=== PATIENT | male | born 1995 | race Caucasian/White ===

== ENCOUNTER 2019-02-03 18:57 | Emergency (ER) | payer OTHER ==
[~2019-02-03] VITALS: Ht 162.6 cm; Wt 81.7 kg
[~2019-02-03 18:57] MED LIST: AMOCLA500 PO; AMOX500 PO; ARIP10 PO; CEPH500 PO; CITA20 PO; CRUTCH USE; CRUTCH4 USE; CYCL10 PO; HYDACE5 PO; IBUP400 PO; IBUP600 PO; IBUP800 PO; NAPR220 PO; NAPR500 PO; Norco 5-325 Ta1 EACH PO; OXYACE5T PO; Permethrin60 GM TP; RXCYCL10 PO; RXTRAM50 PO; TRAM50 PO; [UNRECOGNIZED DRUG - OTHER] EXT
[2019-02-03 20:42] LABS: BASOPHILS ABSOLUTE AUTO 0.05 K/mm3 (0.00-0.23); BASOPHILS PERCENT AUTO 1 % (0-2); EOSINOPHILS ABSOLUTE AUTO 0.12 K/mm3 (0.00-0.68); EOSINOPHILS PERCENT AUTO 1 % (0-6); Hematocrit 45.6 % (37.0-53.0); Hemoglobin 15.4 g/dL (13.5-17.5); IMMATURE GRAN ABSOLUTE AUTO 0.02 K/mm3 (0.00-0.10); IMMATURE GRAN PERCENT AUTO 0 % (0-1); LYMPHOCYTES ABSOLUTE AUTO 2.11 K/mm3 (0.84-5.20); LYMPHOCYTES PERCENT AUTO 22 % (21-46); MONOCYTES ABSOLUTE AUTO 0.89 K/mm3 (0.16-1.47); MONOCYTES PERCENT AUTO 10 % (4-13); Mean Corpuscular HGB 30.1 pg (26.0-34.0); Mean Corpuscular HGB Conc 33.8 g/dL (31.5-36.5); Mean Corpuscular Volume 89 fL (80-100); Mean Platelet Volume 9.3 fL (9.1-12.4); NEUTROPHILS ABSOLUTE AUTO 6.22 K/mm3 (1.96-9.15); NEUTROPHILS PERCENT AUTO 66 % (41-73); Platelet Count 298 K/mm3 (150-400); RDW Coefficient Variation 12.2 % (11.7-14.2); RDW Standard Deviation 40.6 fL (35.1-46.3); Red Blood Cell Count 5.11 M/mm3 (4.30-5.90); White Blood Cell Count 9.41 K/mm3 (4.00-11.30)
[2019-02-03 20:43] LABS: Source, Urine Voided
[2019-02-03 20:51] LABS: Bilirubin, Urine Neg (Neg); Blood, Urine Neg (Neg); Glucose Qualitative, Urine Neg (Neg); Ketones, Urine 4+ (Neg); Leukocyte Esterase, Urine 1+ (Neg); Nitrite, Urine Neg (Neg); Protein, Urine Neg (Neg); Specific Gravity, Urine 1.025 (1.003-1.022); Urobilinogen, Urine NORM (Normal)
[2019-02-03 20:52] LABS: Appearance, Urine Clear (Clear); Color, Urine Yellow (P-Yellow)
[2019-02-03 20:57] LABS: Bacteria Mod /hpf; Red Blood Cells, Urine 0-2 /hpf (0-2); Squamous Epithelial Cells Few /hpf (Few)
[2019-02-03 21:02] LABS: U Amphetamine Screen DETECTED; U Barbituate Screen Not Detected; U Benzodiazapine Screen Not Detected; U Buprenorphine Screen Not Detected; U Cannabinoids Screen Not Detected; U Cocaine Screen Not Detected; U Methadone Screen Not Detected; U Methamphetamine Screen DETECTED; U Opiates Screen Not Detected; U Oxycodone Screen Not Detected; U Phencyclidine Screen Not Detected; U Propoxyphene Screen Not Detected
[2019-02-03 21:04] LABS: Alanine Aminotransfer (ALT/SGP 69 U/L (12-78); Albumin, Blood 4.3 g/dL (3.4-5.0); Albumin/Globulin Ratio 1.3 (0.8-1.8); Alk Phos 113 U/L (50-136); Anion Gap 9 mmol/L (6-16); Aspartate Aminotrans (AST/SGOT 115 U/L (12-37); Bilirubin, Total 1.7 mg/dL (0.1-1.0); Blood Urea Nitrogen 22 mg/dL (8-24); Bun/Creatinine Ratio 21.4 (12.0-20.0); CO2, Blood 24 mmol/L (21-32); Calcium, Blood 8.8 mg/dL (8.5-10.1); Chloride, Blood 102 mmol/L (98-108); Creatinine, Blood 1.03 mg/dL (0.60-1.20); Ethanol (Alcohol), Blood, Med <3 mg/dL; Globulin, Blood 3.2 g/dL (2.2-4.0); Glomerular Filtration Rate >60 (60-); Glucose, Blood 114 mg/dL (70-99); Potassium, Blood 3.9 mmol/L (3.5-5.5); Salicylate <1.7 mg/dL (2.8-20.0); Sodium, Blood 135 mmol/L (136-145); Total Protein, Blood 7.5 g/dL (6.4-8.2)
[2019-02-03 21:08] LABS: Thyroid Stimulating Hormone 0.193 uIU/mL (0.360-4.800)
[2019-02-03 21:10] LABS: Acetaminophen, Random <2.0 ug/mL (10.0-30.0)
[2019-02-03] MEDS ORDERED: Cephalexin500 MG PO (22:32)
== END 2019-02-03 22:50 | disposition home or self-care (01) ==
LOC: ER 18:57
PROVIDERS: Emergency Medicine
DX: S92.352A Displaced fracture of fifth metatarsal bone, left foot, initial encounter for closed fracture (principal); F15.10 Other stimulant abuse, uncomplicated; F17.210 Nicotine dependence, cigarettes, uncomplicated; X58.XXXA Exposure to other specified factors, initial encounter
CPT/HCPCS: 36415; 73630; 80053; 81001; 84443; 85025; 87086; 99284-25; G0480

== ENCOUNTER 2020-08-23 17:55 | Inpatient (IN) | payer OTHER ==
[~2020-08-23] VITALS: Ht 180.3 cm; Wt 78.7 kg
[~2020-08-23 17:55] MED LIST changes: +Cephalexin500 MG PO
[2020-08-23 18:17] LABS: BASOPHILS ABSOLUTE AUTO 0.04 K/mm3 (0.00-0.23); BASOPHILS PERCENT AUTO 1 % (0-2); EOSINOPHILS ABSOLUTE AUTO 0.15 K/mm3 (0.00-0.68); EOSINOPHILS PERCENT AUTO 2 % (0-6); Hematocrit 44.9 % (37.0-53.0); Hemoglobin 15.3 g/dL (13.5-17.5); IMMATURE GRAN ABSOLUTE AUTO 0.02 K/mm3 (0.00-0.10); IMMATURE GRAN PERCENT AUTO 0 % (0-1); LYMPHOCYTES ABSOLUTE AUTO 1.96 K/mm3 (0.84-5.20); LYMPHOCYTES PERCENT AUTO 23 % (21-46); MONOCYTES ABSOLUTE AUTO 0.63 K/mm3 (0.16-1.47); MONOCYTES PERCENT AUTO 7 % (4-13); Mean Corpuscular HGB 30.1 pg (26.0-34.0); Mean Corpuscular HGB Conc 34.1 g/dL (31.5-36.5); Mean Corpuscular Volume 88 fL (80-100); Mean Platelet Volume 9.1 fL (9.1-12.4); NEUTROPHILS ABSOLUTE AUTO 5.73 K/mm3 (1.96-9.15); NEUTROPHILS PERCENT AUTO 67 % (41-73); Platelet Count 302 K/mm3 (150-400); RDW Coefficient Variation 11.9 % (11.7-14.2); RDW Standard Deviation 38.6 fL (35.1-46.3); Red Blood Cell Count 5.08 M/mm3 (4.30-5.90); White Blood Cell Count 8.53 K/mm3 (4.00-11.30)
[2020-08-23 18:39] LABS: Alanine Aminotransfer (ALT/SGP 28 U/L (12-78); Albumin, Blood 4.1 g/dL (3.4-5.0); Albumin/Globulin Ratio 1.2 (0.8-1.8); Alk Phos 84 U/L (50-136); Anion Gap 4 mmol/L (6-16); Aspartate Aminotrans (AST/SGOT 27 U/L (12-37); Bilirubin, Total 0.5 mg/dL (0.1-1.0); Blood Urea Nitrogen 18 mg/dL (8-24); Bun/Creatinine Ratio 19.4 (12.0-20.0); CO2, Blood 25 mmol/L (21-32); Chloride, Blood 107 mmol/L (98-108); Creatinine, Blood 0.93 mg/dL (0.60-1.20); Globulin, Blood 3.3 g/dL (2.2-4.0); Glomerular Filtration Rate >60 (60-); Glucose, Blood 117 mg/dL (70-99); Sodium, Blood 136 mmol/L (136-145); Total Protein, Blood 7.4 g/dL (6.4-8.2)
--- NOTE | 2020-08-23 23:42 | NUR ---
PATIENT GIVES PERMISSION FOR STUDENT TO PARTICIPATE IN CARE
--- NOTE | 2020-08-23 23:42 | NUR ---
PT ARRIVED TO ROOM 224 AT 2245. PT IS A/O X4. ORIENTED TO ROOM. RATING PAIN 7/10 IN NECK. C-COLLAR IN PLACE. PT IS ABLE TO MOVE EXT BUT THIS CAUSES NECK PAIN. HAND HAIR CLIPPER POWER ARE WEAK R/T PAIN. SPOKE WITH DR. PRICE AND OBTAINED ORDERS FOR PAIN MEDS, IV FLUIDS, AND MRI IN AM. PT REQUESTED THAT SAIRA (S/O) AND LEANDER (FRIEND) BE NOTIFIED REGARDING HIS HOSPITALIZATION. LEFT MESSAGE PER PT REQUEST. SOFT TOUCH CALL LIGHT IN REACH. PT IS RESTING AT THIS TIME. WILL MED PER ORDERS.
--- NOTE | 2020-08-24 04:00 | NUR ---
SHIFT SUMMARY PT ADMITTED THIS SHIFT FOR TRAUMA. PT REPORTS PAIN IN NECK WHEN MOVING EXT. PT HAS BEEN ABLE TO REPOSITION SELF IN BED. C-COLLAR IN PLACE. PAIN MANAGED WITH FENTANYL 50MCG PRN. PT HAS BEEN DROWSY BUT AWAKENS EASILY AND IS ORIENTED X4. IV FLUIDS INFUSING OVERNIGHT. PLAN IS FOR MRI THIS AM. PT RESTING AT THIS TIME.
--- NOTE | 2020-08-24 06:05 | NUR ---
PT UNABLE TO VOID. BLADDER SCAN GREATER THAN 600ML. PT HAS ATTEMPTED TO VOID SEVERAL TIMES BUT STATES THAT HE DOES NOT FEEL LIKE HE NEEDS TO VOID. DISCUSSED STRAIGHT CATH; PT IS REFUSING. EDUCATION PROVIDED. PT CONTINUES TO REFUSE. DISCUSSED WITH SOLID PLASTERER. PT RESTING IN BED, CALL LIGHT AND URINAL IN REACH.
--- NOTE | 2020-08-24 16:58 | NUR ---
SHIFT SUMMARY PATIENT DROWSY AND IN BED THROUGHOUT SHIFT. WENT FOR MRI IN AM. C-COLLAR CHANGED BY DR PRICE. TOLERATING REGULAR DIET, VOIDING WELL. 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 PLAN TO MOBILIZE WITH PHYSICAL THERAPY. MEDICATED FOR PAIN PER EMAR.
--- NOTE | 2020-08-25 03:19 | NUR ---
SHIFT SUMMARY: TRAUMA PATIENT IS ALERT AND ORIENTED X4 WHILE AWAKE. HE HAS BEEN ASLEEP MAJORITY OF THE SHIFT BUT IS EASILY AROUSABLE. VS ARE WNL AND IS ON RA. PAIN IS CONTROLLED WITH 2 NORCO PO. C-COLLAR IS IN PLACE AND SHOULD NOT BE TAKEN OFF AT THIS TIME. PATIENT IS VOIDING AND TOLERATING PO INTAKE. HE DENIES NUMBESS BUT STATES SOME WEAKNESS AT TIMES. CALLS APPROPRIATELY. CALL LIGHT WITHIN REACH. THE PLAN IS TO WORK WITH PHYSICAL THERAPY LATER TODAY.
--- NOTE | 2020-08-25 12:16 | NUR ---
WORKED WITH PHYSICAL THERAPY, OOB TO RECLINER CHAIR, NO CHANGES IN NEURO CHECKS FROM THIS AM, CONT. TO MONITOR FOR ANY CHANGES.
--- NOTE | 2020-08-25 14:53 | NUR ---
ASSISTED BACK TO BED, 2 PERSON ASSIST W/ WALKER AND GAIT BELT, WEAK GAIT, TOLERATED FAIRLY WELL.
--- NOTE | 2020-08-25 17:06 | NUR ---
PT BACK IN BED, NO CHANGES IN NEURO CHECKS FROM THIS AM, PAIN TOLERABLE WITH NORCO, SLEPT MOST OF THE DAY, C-COLLAR IN PLACE, NO ACUTE CHANGES THIS SHIFT.
--- NOTE | 2020-08-26 00:13 | NUR ---
NEURO CHECKS COMPLETED, NO CHANGES NOTED.
--- NOTE | 2020-08-26 04:30 | NUR ---
NO NEURO CHANGES NOTED. PT C/O NECK PAIN, MEDICATED PER EMAR.
--- NOTE | 2020-08-26 06:31 | NUR ---
PT HAD NO CHANGES T/O NIGHT; VSS, PUPILS EQUAL/REACTIVE. PT SLEPT FOR MOST OF NIGHT, AWAKENS EASILY TO VERBAL STIMULI. PT CONT TO C/O NECK PAIN AND HEADACHE W/LIGHTS AND MOVEMENTS. HANDLE SEWER AND LEGS WEAK, PT REP NUMBNESS TO FEET. PT SULLY REG PO, ATE WHOLE PIZZA, IS VOIDING W/O DIFFICULTY. PAIN MGD W/1 NORCO.
--- NOTE | 2020-08-26 17:13 | NUR ---
SUMMARY PT SLEPT MOST OF THE DAY, ASSISTED OOB TO RECLINER CHAIR FOR LUNCH, TOLERATED FAIRLY WELL, PT DOESN'T LISTEN TO INSTRUCTIONS, WORKED WITH PHYSICAL TX THIS AFTERNOON, NOTED AMBULATING DOWN THE [place] W/ WALKER, PT WAS ANXIOUS TO GO OUT AND SMOKE, NICOTINE PATCH GIVEN, EXPLAINED NON SMOKING POLICY IN HOSPITAL, DR. PRICE UPDATED, POSSIBLE PLAN TO DC HOME W/ HH PT/OT, NO ACUTE CHANGES THIS SHIFT.
--- NOTE | 2020-08-27 04:06 | NUR ---
PT HAS NOT GOTTEN OUT OF BED AT ALL TONIGHT, BUT WILL NEED ASSISTANCE AND A WALKER IF HE DOES GET UP. PT STILL HAS BILATERAL LOWER AND UPPER EXTREMITY WEAKNESS. PT HAS SLEPT MOST OF THE NIGHT, BUT WHEN HE AWAKENS, HE COMPLAINS OF 9/10 NECK PAIN FOR WHICH HE HAS BEEN MEDICATED. PT STS THAT HE IS SENSITIVE TO LIGHT AND THAT IT HURTS HIS HEAD. PT HAS A FLAT AFFECT AND IS SOMEWHAT IRRITABLE. I AM TOLD THAT THE PLAN IS TO POSSIBLY DISCHARGE HIM HOME TODAY WITH HOME HEALTH CONSULT AND PT/OT TO HIS HOME.
--- NOTE | 2020-08-27 05:25 | NUR ---
PT HAD NO CHANGES T/O NIGHT. PT SLEPT FOR MOST OF NIGHT, AWAKENS EASILY TO VERBAL STIMULI; PUPILS EQUAL/REACTIVE. PT FLAT AND IRRITABLE AT TIMES, STATES "I JUST WANT TO SLEEP" WHEN ROUNDING OR OFFERRING TO ASSIST OOB. C-COLLAR IN PLACE. EXT REMAIN WEAK, PT CONT TO REP HEADACHE AND NECK PAIN W/MVMT. PAIN MGD PER EMAR. PT SULLY REG PO, ASKS FOR FREQ SNACKS DURING ROUNDINGS, IS VOIDING W/O DIFFICULTY. PT DECLINED TO GET OOB THIS SHIFT. AWAITING D/C PLANNING; POSS HOME W/HH VS NEURO REHAB.
[2020-08-27] MEDS ORDERED: HYDR1TAB94 PO ×2 (11:49→11:50)
--- NOTE | 2020-08-27 14:17 | NUR ---
SHIFT SUMMARY PT A&OX4, VSS, PATIENT ACCESS COORDINATOR WNL, AMBULATED INDEPENDENTLY TO BRP AFTER BREAKFAST, AND UP IN ROOM, PAIN MANAGED WITH PO PAIN MEDS, SULLY PO AND EATING WELL, PLEASANT & COOPERATIVE WITH CARE, SHOWERED TODAY. DC INSTRUCTIONS PROVIDED. PT REP UNDERSTANDING THOSE INSTRUCTIONS INCLUDING WEAR C-COLLAR AT ALL TIMES, FU WITH ROBERTO JOAQUIN. IV DC'D.
== END 2020-08-27 12:13 | disposition home or self-care (01) | DRG 914 ==
LOC: ER 17:55 → SURS 17:56
PROVIDERS: Emergency Medicine; ADMIT Surgery
DX: S09.90XA Unspecified injury of head, initial encounter (principal); Z90.49 Acquired absence of other specified parts of digestive tract; Z98.890 Other specified postprocedural states; F17.210 Nicotine dependence, cigarettes, uncomplicated; Z88.5 Allergy status to narcotic agent; X58.XXXA Exposure to other specified factors, initial encounter
CPT/HCPCS: 70450; 71260; 72125; 72141; 72170; 74177; 80053; 85025; 96374-59; 96375-59; 96376; 97112; 97116; 97162; 97530; 99285-25; A9270; A9270-GY; G0378; J2060; J2405; J3010; J7120; Q9967

== ENCOUNTER 2021-07-27 09:22 | Emergency (ER) | payer OTHER ==
[~2021-07-27] VITALS: Ht 165.1 cm; Wt 77.1 kg
[~2021-07-27 09:22] MED LIST changes: +HYDR1TAB94 PO
[2021-07-27 10:07] LABS: BASOPHILS ABSOLUTE AUTO 0.04 K/mm3 (0.00-0.23); BASOPHILS PERCENT AUTO 0 % (0-2); EOSINOPHILS ABSOLUTE AUTO 0.06 K/mm3 (0.00-0.68); EOSINOPHILS PERCENT AUTO 1 % (0-6); Hematocrit 45.2 % (37.0-53.0); Hemoglobin 15.2 g/dL (13.5-17.5); IMMATURE GRAN ABSOLUTE AUTO 0.04 K/mm3 (0.00-0.10); IMMATURE GRAN PERCENT AUTO 0 % (0-1); LYMPHOCYTES ABSOLUTE AUTO 1.88 K/mm3 (0.84-5.20); LYMPHOCYTES PERCENT AUTO 21 % (21-46); MONOCYTES ABSOLUTE AUTO 0.86 K/mm3 (0.16-1.47); MONOCYTES PERCENT AUTO 10 % (4-13); Mean Corpuscular HGB 30.4 pg (26.0-34.0); Mean Corpuscular HGB Conc 33.6 g/dL (31.5-36.5); Mean Corpuscular Volume 90 fL (80-100); NEUTROPHILS ABSOLUTE AUTO 6.15 K/mm3 (1.96-9.15); NEUTROPHILS PERCENT AUTO 68 % (41-73); Platelet Count 311 K/mm3 (150-400); RDW Coefficient Variation 12.8 % (11.7-14.2); RDW Standard Deviation 42.5 fL (35.1-46.3); White Blood Cell Count 9.03 K/mm3 (4.00-11.30)
[2021-07-27 10:23] LABS: Alanine Aminotransfer (ALT/SGP 43 U/L (12-78); Albumin, Blood 3.7 g/dL (3.4-5.0); Albumin/Globulin Ratio 1.1 (0.8-1.8); Alk Phos 115 U/L (50-136); Anion Gap 4 mmol/L (6-16); Aspartate Aminotrans (AST/SGOT 49 U/L (12-37); Bilirubin, Total 0.3 mg/dL (0.1-1.0); Blood Urea Nitrogen 16 mg/dL (8-24); Bun/Creatinine Ratio 17.1 (12.0-20.0); CO2, Blood 30 mmol/L (21-32); Chloride, Blood 104 mmol/L (98-108); Creatinine, Blood 0.94 mg/dL (0.60-1.20); Globulin, Blood 3.5 g/dL (2.2-4.0); Glomerular Filtration Rate >60 (60-); Glucose, Blood 105 mg/dL (70-99); Potassium, Blood 3.9 mmol/L (3.5-5.5); Sodium, Blood 138 mmol/L (136-145); Total Protein, Blood 7.2 g/dL (6.4-8.2)
[2022-01-23] MEDS ORDERED: IBU800 MG PO (17:12)
== END 2021-07-27 11:20 | disposition home or self-care (01) ==
LOC: ER 09:22
PROVIDERS: Physician Assistant
DX: S02.2XXA Fracture of nasal bones, initial encounter for closed fracture (principal); S00.432A Contusion of left ear, initial encounter; F17.210 Nicotine dependence, cigarettes, uncomplicated; V89.2XXA Person injured in unspecified motor-vehicle accident, traffic, initial encounter
CPT/HCPCS: 70450; 70486; 72125; 80053; 85025; 96374; 99284-25; J3010; L0160

== ENCOUNTER 2022-03-16 00:23 | Emergency (ER) | payer SELFPAY ==
[~2022-03-16] VITALS: Ht 162.6 cm; Wt 77.1 kg
[~2022-03-16 00:23] MED LIST changes: +IBU800 MG PO
[2022-03-16 04:40] LABS: BASOPHILS ABSOLUTE AUTO 0.03 K/mm3 (0.00-0.23); BASOPHILS PERCENT AUTO 0 % (0-2); EOSINOPHILS ABSOLUTE AUTO 0.07 K/mm3 (0.00-0.68); EOSINOPHILS PERCENT AUTO 1 % (0-6); Hematocrit 38.9 % (37.0-53.0); Hemoglobin 12.8 g/dL (13.5-17.5); IMMATURE GRAN ABSOLUTE AUTO 0.02 K/mm3 (0.00-0.10); IMMATURE GRAN PERCENT AUTO 0 % (0-1); LYMPHOCYTES ABSOLUTE AUTO 1.94 K/mm3 (0.84-5.20); LYMPHOCYTES PERCENT AUTO 19 % (21-46); MONOCYTES ABSOLUTE AUTO 1.09 K/mm3 (0.16-1.47); MONOCYTES PERCENT AUTO 10 % (4-13); Mean Corpuscular HGB Conc 32.9 g/dL (31.5-36.5); Mean Corpuscular Volume 91 fL (80-100); Mean Platelet Volume 9.2 fL (9.1-12.4); NEUTROPHILS ABSOLUTE AUTO 7.32 K/mm3 (1.96-9.15); NEUTROPHILS PERCENT AUTO 70 % (41-73); Platelet Count 335 K/mm3 (150-400); RDW Coefficient Variation 12.2 % (11.7-14.2); Red Blood Cell Count 4.27 M/mm3 (4.30-5.90); White Blood Cell Count 10.47 K/mm3 (4.00-11.30)
[2022-03-16 05:05] LABS: Bun/Creatinine Ratio 16.3 (12.0-20.0); Calcium, Blood 8.7 mg/dL (8.5-10.1); Creatinine, Blood 0.92 mg/dL (0.60-1.20); Potassium, Blood 3.7 mmol/L (3.5-5.5)
[2022-03-16] MEDS ORDERED: IBUP600 PO (05:22)
[2022-03-16] MEDS ORDERED: Cleocin HCl300 MG PO (05:22)
== END 2022-03-16 05:33 | disposition home or self-care (01) ==
LOC: ER 00:23
PROVIDERS: Emergency Medicine
DX: L03.211 Cellulitis of face (principal); K02.9 Dental caries, unspecified
CPT/HCPCS: 70487; 80048; 85025; J1885; Q9967

== ENCOUNTER 2023-05-28 04:00 | Inpatient (IN) | payer OTHER ==
[~2023-05-28] VITALS: Ht 162.6 cm; Wt 78.3 kg
[~2023-05-28 04:00] MED LIST changes: +Cleocin HCl300 MG PO
[2023-05-28 05:50] LABS: BASOPHILS ABSOLUTE AUTO 0.04 K/mm3 (0.00-0.23); BASOPHILS PERCENT AUTO 0 % (0-2); EOSINOPHILS ABSOLUTE AUTO 0.02 K/mm3 (0.00-0.68); EOSINOPHILS PERCENT AUTO 0 % (0-6); Hematocrit 44.3 % (37.0-53.0); Hemoglobin 15.6 g/dL (13.5-17.5); IMMATURE GRAN ABSOLUTE AUTO 0.04 K/mm3 (0.00-0.10); IMMATURE GRAN PERCENT AUTO 0 % (0-1); LYMPHOCYTES ABSOLUTE AUTO 1.34 K/mm3 (0.84-5.20); LYMPHOCYTES PERCENT AUTO 10 % (21-46); MONOCYTES ABSOLUTE AUTO 1.08 K/mm3 (0.16-1.47); MONOCYTES PERCENT AUTO 8 % (4-13); Mean Corpuscular HGB 30.3 pg (26.0-34.0); Mean Corpuscular HGB Conc 35.2 g/dL (31.5-36.5); Mean Corpuscular Volume 86 fL (80-100); Mean Platelet Volume 8.8 fL (9.1-12.4); NEUTROPHILS ABSOLUTE AUTO 11.49 K/mm3 (1.96-9.15); NEUTROPHILS PERCENT AUTO 82 % (41-73); Platelet Count 229 K/mm3 (150-400); RDW Coefficient Variation 11.9 % (11.7-14.2); RDW Standard Deviation 37.3 fL (35.1-46.3); Red Blood Cell Count 5.15 M/mm3 (4.30-5.90); White Blood Cell Count 14.01 K/mm3 (4.00-11.30)
[2023-05-28 06:26] LABS: Albumin, Blood 4.8 g/dL (3.4-5.0); Albumin/Globulin Ratio 1.3 (0.8-1.8); Bilirubin, Total 2.3 mg/dL (0.1-1.0); Bun/Creatinine Ratio 20.5 (12.0-20.0); Calcium, Blood 9.6 mg/dL (8.5-10.1); Creatinine, Blood 1.12 mg/dL (0.60-1.20); Globulin, Blood 3.7 g/dL (2.2-4.0); Potassium, Blood 3.3 mmol/L (3.5-5.5); Total Protein, Blood 8.5 g/dL (6.4-8.2)
[2023-05-28 09:54] VITALS: BP 113/91
[2023-05-28 10:01] LABS: Influenza A, PCR NEGATIVE (NEGATIVE); Influenza B, PCR NEGATIVE (NEGATIVE); Resp Syncytial Virus, PCR NEGATIVE (NEGATIVE); SARS-Cov-2 (COVID-19) PCR, MMC NEGATIVE (NEGATIVE)
--- NOTE | 2023-05-28 10:30 | NUR ---
TELE CALLED AND STATED THAT PT WAS HAVING ST ELEVATIONS. CALL TO DR SPENCER FOR ORDERS FOR EKG.
--- NOTE | 2023-05-28 10:30 | NUR ---
ASSUMED CARE: PT ARRIVED FROM ED, DROWSY BUT ABLE TO ANSWER QUESTIONS. AWAITING TELE MONITOR. FRIEND AT BEDSIDE, ABLE TO ANSWER QUESTIONS APPROPRIATELEY. SCABS TO LEFT HAND WITH REDNESS TRACING TO BICEP. BORDERS DRAWN WITH PEN LIGHT. STATES MILD BACK PAIN AND WONDERING ABOUT RESULTS OF IMAGING.
--- NOTE | 2023-05-28 11:08 | NUR ---
EKG PERFORMED WITH RESULT TO DR SPENCER. ALSO RELAYED TO DR SPENCER THAT PT GOT UP TO BSC AND WAS TOE TOUCH ONLY WITH RIGHT FOOT. ANKLE TURNED INWARD AND SWOLLEN, UNABLE TO BEAR WEIGHT. ORDERS FOR XRAY. PT AGREEABLE TO THIS
--- NOTE | 2023-05-28 12:08 | NUR ---
XR TECH AT BEDSIDE WITH MACHINE
[2023-05-28 15:52] VITALS: BP 105/68
--- NOTE | 2023-05-28 18:25 | NUR ---
SHIFT SUMMARY: PT HAS BEEN GIVEN IV TORADOL FOR PAIN X1 THIS SHIFT. XRAY OF FOOT DONE DUE TO RIGHT ANKLE PAIN. BORDERS DRAWN TO WOUND ON HAND TO TRACK PROGRESS. PT HAS DENIED NEEDS OR CONCERNS THIS SHIFT AND HAS BEEN PLEASANT AND COOPERATIVE.
[2023-05-28 20:08] VITALS: BP 106/66
[2023-05-29 04:34] VITALS: BP 107/69
--- NOTE | 2023-05-29 05:37 | NUR ---
SUMMARY: PT A/OX4, IS PLEASANT AND COOPERATIVE W/CARE AND CALLS APPROPRIATELY TO SPECIFY NEEDS. HE USES URINAL AD JERRY AND IS SBA OOB D/T SORE R.ANKLE W/MILD WEAKNESS. LR INFUSES AND IV ABX RECIEVED PER EMAR. TORADOL WAS PROVIDED FOR TOLERABLE RELIEF OF GENERALIZED PAIN AND R.ARM CELLULITIS PAIN. REDNESS AND RECEEDED FROM MARKED PERIMETER OF TRACK RUNNING UP ARM FROM SCABBE KNUCKLES TO BICEP. NO ACUTE CHANGES, VSS/AFEBRILE. HE REMAINS IN ACCELERATED JUNCTIONAL RHYTHM AT 70'S-90'S BPM ON TELE. WCTM AND REPORT TO DAY RN.
[2023-05-29 07:06] LABS: BASOPHILS ABSOLUTE AUTO 0.02 K/mm3 (0.00-0.23); BASOPHILS PERCENT AUTO 0 % (0-2); EOSINOPHILS ABSOLUTE AUTO 0.16 K/mm3 (0.00-0.68); EOSINOPHILS PERCENT AUTO 3 % (0-6); Hematocrit 36.4 % (37.0-53.0); Hemoglobin 12.7 g/dL (13.5-17.5); IMMATURE GRAN ABSOLUTE AUTO 0.01 K/mm3 (0.00-0.10); IMMATURE GRAN PERCENT AUTO 0 % (0-1); LYMPHOCYTES ABSOLUTE AUTO 1.42 K/mm3 (0.84-5.20); LYMPHOCYTES PERCENT AUTO 29 % (21-46); MONOCYTES ABSOLUTE AUTO 0.49 K/mm3 (0.16-1.47); MONOCYTES PERCENT AUTO 10 % (4-13); Mean Corpuscular HGB 30.7 pg (26.0-34.0); Mean Corpuscular HGB Conc 34.9 g/dL (31.5-36.5); Mean Corpuscular Volume 88 fL (80-100); Mean Platelet Volume 9.3 fL (9.1-12.4); NEUTROPHILS PERCENT AUTO 57 % (41-73); Platelet Count 174 K/mm3 (150-400); RDW Coefficient Variation 12.4 % (11.7-14.2); RDW Standard Deviation 39.8 fL (35.1-46.3); Red Blood Cell Count 4.14 M/mm3 (4.30-5.90)
[2023-05-29 07:31] VITALS: BP 117/75
[2023-05-29 07:42] LABS: Alanine Aminotransfer (ALT/SGP 32 U/L (12-78); Alk Phos 75 U/L (50-136); Aspartate Aminotrans (AST/SGOT 65 U/L (12-37); Bilirubin, Total 0.3 mg/dL (0.1-1.0); Blood Urea Nitrogen 18 mg/dL (8-24); CO2, Blood 28 mmol/L (21-32); Chloride, Blood 116 mmol/L (98-108); Creatinine, Blood 0.95 mg/dL (0.60-1.20); Glomerular Filtration Rate 111 (60-); Glucose, Blood 109 mg/dL (70-99); Potassium, Blood 3.8 mmol/L (3.5-5.5); Vancomycin, Trough 8.9 ug/mL (5.0-10.0)
[2023-05-29 07:43] LABS: Albumin, Blood 2.5 g/dL (3.4-5.0); Albumin/Globulin Ratio 0.9 (0.8-1.8); Anion Gap 2 mmol/L (6-16); Calcium, Blood 7.4 mg/dL (8.5-10.1); Globulin, Blood 2.9 g/dL (2.2-4.0); Sodium, Blood 146 mmol/L (136-145); Total Protein, Blood 5.4 g/dL (6.4-8.2)
[2023-05-29 10:35] LABS: Source, Urine Clean Catch
[2023-05-29 10:42] LABS: Appearance, Urine Clear (Clear); Bilirubin, Urine Neg (Neg); Blood, Urine Neg (Neg); Color, Urine Yellow (P-Yellow); Glucose Qualitative, Urine Neg (Neg); Ketones, Urine Neg (Neg); Leukocyte Esterase, Urine Neg (Neg); Nitrite, Urine Neg (Neg); Protein, Urine Neg (Neg); Urobilinogen, Urine NORM (Normal); pH, Urine 6.5 (5.0-8.0)
[2023-05-29 10:59] LABS: U Amphetamine Screen DETECTED; U Barbituate Screen Not Detected; U Benzodiazapine Screen Not Detected; U Buprenorphine Screen Not Detected; U Cannabinoids Screen Not Detected; U Cocaine Screen Not Detected; U Methadone Screen Not Detected; U Methamphetamine Screen DETECTED; U Opiates Screen Not Detected; U Oxycodone Screen Not Detected; U Phencyclidine Screen Not Detected
--- NOTE | 2023-05-29 17:49 | NUR ---
PATIENT IS ALERT AND ORIENTED AND COOPERATIVE WITH CARE. ON RA. C/O PAIN IN HIS LEFT HAND, RIGHT FOOT AND LANDIN AND GENERALIZED PAIN ALL OVER THAT HE STATES STARTED YESTERDAY. PATIENT IS EATING AND SLEEPING WELL. HE HAD VISITIORS TODAY. LOOSE BM THIS SHIFT. WILL CONTINUE TO MONITOR
[2023-05-29 19:44] VITALS: BP 109/74
[2023-05-30 04:05] VITALS: BP 115/79
--- NOTE | 2023-05-30 04:51 | NUR ---
END OF SHIFT SUMMARY PT A&O x4, VSS, AFEBRILE, PT ON RA. PT ADMITTED FOR SEPSIS D/T CELLULITIS TO L ARM AND R LEG. PT C/O PAIN TO L ARM AND R LEG. PT DESCRIBED HIS PAIN A BURNING SENSATION. PAIN MANAGED WITH PRN IV TORADOL x1. SWELLING MARKED ON LEG AND ARM, REDNESS HAS IMPROVED. PT REQUESTED SNACKS AND FLUIDS, PT ABLE TO MAKE NEEDS KNOWN, CALL LIGHT WITHIN REACH, WCTM.
[2023-05-30 07:16] LABS: BASOPHILS ABSOLUTE AUTO 0.05 K/mm3 (0.00-0.23); BASOPHILS PERCENT AUTO 1 % (0-2); EOSINOPHILS PERCENT AUTO 5 % (0-6); Hematocrit 39.7 % (37.0-53.0); Hemoglobin 13.8 g/dL (13.5-17.5); IMMATURE GRAN ABSOLUTE AUTO 0.01 K/mm3 (0.00-0.10); IMMATURE GRAN PERCENT AUTO 0 % (0-1); LYMPHOCYTES ABSOLUTE AUTO 1.83 K/mm3 (0.84-5.20); LYMPHOCYTES PERCENT AUTO 43 % (21-46); MONOCYTES ABSOLUTE AUTO 0.37 K/mm3 (0.16-1.47); MONOCYTES PERCENT AUTO 9 % (4-13); Mean Corpuscular HGB 30.7 pg (26.0-34.0); Mean Corpuscular HGB Conc 34.8 g/dL (31.5-36.5); Mean Corpuscular Volume 88 fL (80-100); Mean Platelet Volume 9.4 fL (9.1-12.4); NEUTROPHILS ABSOLUTE AUTO 1.84 K/mm3 (1.96-9.15); NEUTROPHILS PERCENT AUTO 43 % (41-73); Platelet Count 202 K/mm3 (150-400); RDW Coefficient Variation 12.4 % (11.7-14.2); RDW Standard Deviation 40.1 fL (35.1-46.3)
[2023-05-30 07:33] VITALS: BP 117/82
[2023-05-30 07:39] LABS: Bun/Creatinine Ratio 19.8 (12.0-20.0); Calcium, Blood 8.4 mg/dL (8.5-10.1); Creatinine, Blood 0.81 mg/dL (0.60-1.20); Potassium, Blood 3.6 mmol/L (3.5-5.5)
[2023-05-30 15:55] VITALS: BP 113/75
--- NOTE | 2023-05-30 16:57 | NUR ---
SHIFT SUMMARY: PT IS A 28 YEAR OLD MALE HERE FOR SEPSIS SECONDARY TO CELLULITIS. HE IS BEING TREATED WITH IV ANTIBIOTICS AND RESPONDING WELL TO TREATMENT EVIDENCED BY IMPROVEMENT OF REDNESS AND SWELLING IN HIS LEFT ARM AND RIGHT LEFT. HE COMPLAINED OF PAIN ONCE TODAY AND IT WAS IN HIS BACK AND RIGHT FOOT. GIVEN IV TORADOL AND WAS EFFECTIVE. HE HAS BEEN RESTING IN BED, WAKING UP TO EAT, USE THE RESTROOM, AND WHEN CARE IS BEING PROVIDED. HE MAKES HIS NEEDS KNOWN AND DISPLAYING NO SIGNS OR SYMPTOMS OF DISTRESS. PLAN OF CARE ONGOING.
[2023-05-30 19:24] VITALS: BP 104/73
[2023-05-31 04:53] VITALS: BP 103/68
--- NOTE | 2023-05-31 06:54 | NUR ---
Shift Summary No c/o of pain or discomfort this shift. Pt R foot looks greatly improved, no signs of redness or swelling. He is currently anxious to go home. He asked about going outside to smoke with his friend but I informed him smoking is banned t/o the campus, offered nicotine replacement which he refused. He is AOx4 and uses urinal independently, he hasn't tried to ambulate on his this shift because it was painful last time.
[2023-05-31 07:49] VITALS: BP 110/71
[2023-05-31 08:00] LABS: Creatinine, Blood 0.86 mg/dL (0.60-1.20); Vancomycin, Trough 18.5 ug/mL (5.0-10.0)
[2023-05-31] MEDS ORDERED: ACET325 PO (11:30)
[2023-05-31] MEDS ORDERED: NICO21TP TOP (11:31)
[2023-05-31] MEDS ORDERED: VISBIOME 112.51 EACH PO (11:31)
[2023-05-31] MEDS ORDERED: CEPH500 (11:33)
--- NOTE | 2023-05-31 13:37 | NUR ---
DISCHARGE NOTE: DISCUSSED DISCHARGE WITH PATIENT AND GAVE HIM A HANDOUT ON PCP'S THAT ARE ACCEPTING PATIENTS SO HE CAN ESTABLISH WITH CARE. HIS IV AND TELEMETRY WERE D/C'D, HE SHOWERED, AND COLLECTED HIS BELONGINGS. HE CONTACTED HIS BROTHER TO COME GET HIM. ONCE HIS BROTHER ARRIVED HE WAS WHEELED DOWN VIA WHEELCHAIR. NO SIGNS OR SYMPTOMS OF DISTRESS DURING DISCHARGE.
== END 2023-05-31 13:35 | disposition home or self-care (01) | DRG 871 ==
LOC: ER 04:00 → MEDS 09:14
PROVIDERS: Emergency Medicine; Family Medicine; Student in an Organized Health Care Education/Training Program; ADMIT Internal Medicine
DX: A41.9 Sepsis, unspecified organism (principal); G92.8 Other toxic encephalopathy; L03.115 Cellulitis of right lower limb; L03.114 Cellulitis of left upper limb; E87.1 Hypo-osmolality and hyponatremia; E87.0 Hyperosmolality and hypernatremia; N20.0 Calculus of kidney; N30.90 Cystitis, unspecified without hematuria; F17.210 Nicotine dependence, cigarettes, uncomplicated; E87.6 Hypokalemia; F15.90 Other stimulant use, unspecified, uncomplicated; D64.9 Anemia, unspecified; Z85.46 Personal history of malignant neoplasm of prostate; Z11.52 Encounter for screening for COVID-19; Z92.3 Personal history of irradiation
CPT/HCPCS: 0241U; 36415; 71045; 73600; 74177; 80048; 80053; 80202; 81003; 82565; 83605; 85025; 93005; 93010; 94760; 96365-59; 96366; 96368; 99285-25; A9270; J1650; J1885; J2543; J3370; J7030; J7050; J7120; Q9967

== ENCOUNTER 2023-06-28 19:44 | Emergency (ER) | payer OTHER ==
[~2023-06-28] VITALS: Ht 162.6 cm; Wt 77.1 kg
[~2023-06-28 19:44] MED LIST changes: +ACET325 PO; +CEPH500; +NICO21TP TOP; +VISBIOME 112.51 EACH PO
[2023-06-28 19:45] VITALS: BP 132/94
== END 2023-06-28 20:30 | disposition left against medical advice (07) ==
LOC: ER 19:44
DX: T65.91XA Toxic effect of unspecified substance, accidental (unintentional), initial encounter (principal); R40.4 Transient alteration of awareness; F17.210 Nicotine dependence, cigarettes, uncomplicated; Y92.149 Unspecified place in prison as the place of occurrence of the external cause
CPT/HCPCS: 99284